=== PATIENT | female | born 1995 | race African-American/Black ===

== ENCOUNTER 2019-11-24 20:14 | Emergency (ER) | payer MEDICAID, OTHER ==
[~2019-11-24] VITALS: Ht 175.3 cm; Wt 71.3 kg
[2019-11-24] MEDS ORDERED: PLEASE ENTER ALLERGIES MC SCH (21:00)
[2019-11-24] MEDS ORDERED: ONDANSETRON 2MG/ML, 2ML IVPush ONE (21:00)
[2019-11-24 21:04] LABS: PH, VENOUS 7.443 pH (7.320-7.420)
[2019-11-24 21:05] LABS: BASOPHILS # (AUTO) 0.01 x10^3/uL (0-0.1); BASOPHILS % (AUTO) 0 % (0-1); EOSINOPHILS % (AUTO) 0 % (1-7); LYMPHOCYTES # (AUTO) 0.98 x10^3/uL (1-3.4); LYMPHOCYTES % (AUTO) 7 % (22-44); MD NO; MEAN CORPUSCULAR HGB CONC 33.3 g/dL (32.4-35.8); MEAN CORPUSCULAR VOLUME 90.1 fL (80-100); MEAN PLATELET VOLUME 8.7 fL (7.4-10.4); MONOCYTES # (AUTO) 0.11 x10^3/uL (0.2-0.8); MONOCYTES % (AUTO) 1 % (2-9); NEUTROPHILS # (AUTO) 13.51 x10^3/uL (1.8-6.8); NEUTROPHILS % (AUTO) 93 % (42-75); PLATELET COUNT 302 x10^3/uL (130-400); RED BLOOD COUNT 4.93 x10^6/uL (3.82-5.3); RED CELL DISTRIBUTION WIDTH 13.3 % (9.6-15.2)
[2019-11-24 21:18] LABS: ALANINE AMINOTRANSFERASE 29 U/L (12-78); ALBUMIN 4.1 g/dL (3.4-5.0); ANION GAP 13 mmol/L (5-15); CALCIUM 9.7 mg/dL (8.5-10.1); CHLORIDE 105 mmol/L (98-107); CREATININE 0.81 mg/dL (0.55-1.02)
[2019-11-24 21:22] LABS: ALKALINE PHOSPHATASE 105 U/L (45-117); BILIRUBIN,TOTAL 0.6 mg/dL (0.2-1.0); TOTAL PROTEIN 8.2 g/dL (6.4-8.2)
[2019-11-24] MEDS ORDERED: SODIUM CHLORIDE 0.9% 1,000ML IVBOLUS ONE (22:30)
[2019-11-24] MEDS ORDERED: INSULIN REGULAR 100 UNITS/ML, 3ML VIAL IVPush ONE (22:30)
[2019-11-24] MEDS ORDERED: INSULIN SINGLE DOSE, ER ONE (22:33)
[2019-11-24] MEDS ORDERED: ONDANSETRON 2MG/ML, 2ML ONE (22:33)
[2019-11-24 23:01] LABS: ACETONE, SERUM Small (20mg/dL) mg/dL (Negative)
[2019-11-25] VITALS: BP 140/80
[2019-11-25 00:02] LABS: MICROSCOPIC NOT IND
[2019-11-25 00:07] LABS: CULTURE INDICATED? NO
[2019-11-26] MEDS ORDERED: INSU100V11 SC (11:13)
== END 2019-11-25 00:37 | disposition home or self-care (01) ==
LOC: ED 11-25 00:33
DX: R11.2 Nausea with vomiting, unspecified (principal); R10.13 Epigastric pain; E11.65 Type 2 diabetes mellitus with hyperglycemia
CPT/HCPCS: 36415; 80053; 81003; 82010; 82803; 82962; 83690; 84703; 85025; 93005; 96361; 96374; 96375; 99284; J1815; J2405; J7030

== ENCOUNTER 2019-11-25 11:50 | Emergency (ER) | payer MEDICAID ==
[~2019-11-25] VITALS: Ht 175.3 cm; Wt 73.0 kg
--- NOTE | 2019-11-25 12:16 | NUR ---
FIRST CONTACT WITH PT. HX DIABETIC PT REPORTS DKA WITH N/V AND ABD PAIN. PT HERE LAST NOC SAME. BG 267 AT THIS TIME. BP/SPO2 MONITORS IN PLACE. CALL LIGHT WITHIN REACH. PT'S BF AT BEDSIDE AT THIS TIME.
[2019-11-25 12:47] LABS: O2 FLOW ROOM AIR L/min
--- NOTE | 2019-11-25 12:49 | NUR ---
NS INFUSING AT THIS TIME. PT TOLERATED WELL.
--- NOTE | 2019-11-25 12:49 | NUR ---
PT IS NOT ABLE TO PROVIDE URINE SAMPLE AT THIS TIME. PT AWARES OF UA.
[2019-11-25] MEDS ORDERED: ONDANSETRON 2MG/ML, 2ML ONE (12:55)
[2019-11-25 12:57] LABS: ANION GAP 11 mmol/L (5-15); CHLORIDE 101 mmol/L (98-107); CREATININE 0.62 mg/dL (0.55-1.02)
--- NOTE | 2019-11-25 12:57 | NUR ---
pt medicated per emar. pt tolerated well.
[2019-11-25] MEDS ORDERED: SODIUM CHLORIDE 0.9% 1,000ML IVBOLUS ONE ×2 (13:00→14:00)
[2019-11-25] MEDS ORDERED: ONDANSETRON 2MG/ML, 2ML IVPush ONE (13:00)
[2019-11-25 13:44] LABS: ACETONE, SERUM Small (20mg/dL) mg/dL (Negative)
--- NOTE | 2019-11-25 14:07 | NUR ---
pt amb to br with boyfriend for ua.
--- NOTE | 2019-11-25 14:12 | NUR ---
pt provided urine sample at this time. ua sent.
--- NOTE | 2019-11-25 14:12 | NUR ---
2nd ns infusing at this time. pt tolerated well.
[2019-11-25 14:42] LABS: MICROSCOPIC AUTO
[2019-11-25 14:42] LABS: HEMOGRAM NOTE RECHECKED; MD YES; MEAN CORPUSCULAR HEMOGLOBIN 29.6 pg (27.0-34.8); MEAN PLATELET VOLUME 9.2 fL (7.4-10.4); PLATELET COUNT 311 x10^3/uL (130-400); RED BLOOD COUNT 4.53 x10^6/uL (3.82-5.3); RED CELL DISTRIBUTION WIDTH 13.5 % (9.6-15.2)
[2019-11-25 14:43] LABS: CULTURE INDICATED? NO
[2019-11-25 14:44] LABS: <PLATELET ESTIMATE> ADEQUATE; <PLT MORPHOLOGY> NORMAL PLT MORPH; <RBC MORPHOLOGY> NORMAL; BAND#(MANUAL) 0.43 x10^3/uL; BANDS%(MANUAL) 3 % (0-7); LYMPH#(MANUAL) 0.43 x10^3/uL (1-3.4); LYMPHS% (MANUAL) 3 % (22-44); MONOS#(MANUAL) 0.29 x10^3/uL (0.3-2.7); MONOS% (MANUAL) 2 % (2-9); SEG#(MANUAL) 13.16 x10^3/uL (1.8-6.8); SEGS% (MANUAL) 92 % (42-75)
--- NOTE | 2019-11-25 14:51 | NUR ---
PT'S BOYFRIEND BRENDA [phone]
[2019-11-25 15:55] VITALS: BP 156/81
--- NOTE | 2019-11-25 16:06 | NUR ---
PT SLEEPING IN [facility]. RESPS EVEN AND UNLABORED. BP/SPO2 MONITORS IN PLACE. CALL LIGHT WITHIN REACH.
--- NOTE | 2019-11-25 16:18 | NUR ---
BG 200 AT THIS TIME.
--- NOTE | 2019-11-25 16:19 | NUR ---
PT AMB TO BR WITH STEADY GAIT.
--- NOTE | 2019-11-25 16:24 | NUR ---
PT BACK TO ROOM WITH STEADY GAIT.
--- NOTE | 2019-11-25 16:38 | NUR ---
SNACKS GIVEN AT THIS TIME.
--- NOTE | 2019-11-25 16:47 | NUR ---
Patient given discharge instructions and they have confirmed that they understand the instructions. Patient ambulatory with steady gait.
[2019-11-26] MEDS ORDERED: INSU100V11 SC (11:13)
== END 2019-11-25 16:48 | disposition home or self-care (01) ==
LOC: ED 12:15
DX: K52.9 Noninfective gastroenteritis and colitis, unspecified (principal); E86.0 Dehydration; E10.65 Type 1 diabetes mellitus with hyperglycemia
CPT/HCPCS: 36600; 80048; 81001; 82010; 82803; 82962; 85025; 96361; 96374; 99283; J2405; J7030; 99284

== ENCOUNTER 2019-11-26 11:02 | Inpatient (IN) | payer MEDICAID ==
[~2019-11-26] VITALS: Ht 175.3 cm; Wt 73.2 kg
[2019-11-26] MEDS ORDERED: INSU100V11 SC (11:13)
--- NOTE | 2019-11-26 11:13 | NUR ---
antoniaa from home for n/v and high fsbg. pt was seen here for same yesterday and was told to drink lots of water but is unable to keep food or fluids down. pt states fsbg was 329 at home, 380 for jenna fire and was 340 per ems. piv established en route and 250mL NS, 4mg zofran and 50 fentanyl was administered. pt connected to all monitors. vss. awaiting edmd assessment.
[2019-11-26] MEDS ORDERED: METOCLOPRAMIDE 5 MG/ML, 2ML ONE (11:27)
[2019-11-26] MEDS ORDERED: METOCLOPRAMIDE 5 MG/ML, 2ML IVPush ONE (11:30)
[2019-11-26] MEDS ORDERED: SODIUM CHLORIDE 0.9% 1,000ML IVBOLUS ONE ×2 (11:30→13:30)
[2019-11-26] MEDS ORDERED: SODIUM CHLORIDE FLUSH 10ML SYR IVF ONE (11:30)
--- NOTE | 2019-11-26 11:33 | NUR ---
pt resting in room. vss. photo lab technician to bs for draw. pt medicated per mar. pt aware of need for ua sample but states that she just went and cannot go again at this time. awaiting resutls.
[2019-11-26 11:50] LABS: BASOPHILS % (AUTO) 0 % (0-1); EOSINOPHILS % (AUTO) 0 % (1-7); LYMPHOCYTES # (AUTO) 1.79 x10^3/uL (1-3.4); LYMPHOCYTES % (AUTO) 12 % (22-44); MD NO; MEAN CORPUSCULAR HEMOGLOBIN 29.7 pg (27.0-34.8); MEAN CORPUSCULAR HGB CONC 33.8 g/dL (32.4-35.8); MEAN CORPUSCULAR VOLUME 87.8 fL (80-100); MEAN PLATELET VOLUME 8.9 fL (7.4-10.4); MONOCYTES % (AUTO) 4 % (2-9); NEUTROPHILS # (AUTO) 12.38 x10^3/uL (1.8-6.8); NEUTROPHILS % (AUTO) 84 % (42-75); PLATELET COUNT 321 x10^3/uL (130-400); RED BLOOD COUNT 4.58 x10^6/uL (3.82-5.3); RED CELL DISTRIBUTION WIDTH 13.4 % (9.6-15.2)
[2019-11-26 11:55] LABS: ALANINE AMINOTRANSFERASE 22 U/L (12-78); ALBUMIN 3.6 g/dL (3.4-5.0); ANION GAP 14 mmol/L (5-15); CALCIUM 8.6 mg/dL (8.5-10.1); CHLORIDE 102 mmol/L (98-107); CREATININE 0.76 mg/dL (0.55-1.02)
[2019-11-26 11:58] LABS: ALKALINE PHOSPHATASE 92 U/L (45-117); BILIRUBIN,TOTAL 0.7 mg/dL (0.2-1.0); TOTAL PROTEIN 7.2 g/dL (6.4-8.2)
--- NOTE | 2019-11-26 12:05 | NUR ---
pt up self to rr wtih steady gait to provide ua sample.
--- NOTE | 2019-11-26 12:13 | NUR ---
pt back form rr and reconnected to monitors. vss. no needs expressed. ua collected and sent. awaiting results.
[2019-11-26 12:36] LABS: ACETONE, SERUM Large (80mg/dL) mg/dL (Negative)
[2019-11-26 12:40] LABS: MICROSCOPIC AUTO
[2019-11-26 12:47] LABS: CULTURE INDICATED? NO
[2019-11-26] MEDS ORDERED: INSULIN SINGLE DOSE, ER ONE (13:25)
[2019-11-26] MEDS ORDERED: ONDANSETRON ODT 4 MG PO PRN (13:30)
[2019-11-26] MEDS ORDERED: ACETAMINOPHEN 325 MG TABLET PO PRN (13:30)
[2019-11-26] MEDS ORDERED: ONDANSETRON 2MG/ML, 2ML IVPush PRN (13:30)
[2019-11-26] MEDS ORDERED: DEXTROSE 50%, 50ML SYRINGE IVPush PRN (13:30)
[2019-11-26] MEDS ORDERED: hydrALAzine 20 MG/ML, 1ML IVPush PRN (13:30)
[2019-11-26] MEDS ORDERED: MORPHINE SULFATE 4 MG/ML, 1ML IVPush PRN (13:30)
[2019-11-26] MEDS ORDERED: GLUCAGON 1 MG IM PRN (13:30)
[2019-11-26] MEDS ORDERED: DEXTROSE 4 GM TAB.CHEW PO PRN (13:30)
[2019-11-26] MEDS ORDERED: SODIUM CHLORIDE 0.9% 1,000 ML IV ONE (13:30)
[2019-11-26] MEDS ORDERED: BACLOFEN 10 MG TABLET PO PRN (13:30)
[2019-11-26] MEDS ORDERED: GABAPENTIN 300 MG CAPSULE PO PRN (13:30)
[2019-11-26] MEDS ORDERED: INSULIN REGULAR 100 UNITS/ML, 3ML VIAL IVPush ONE (13:30)
--- NOTE | 2019-11-26 14:33 | NUR ---
REPORT TO AROLDO GUTIERREZ. PT READY FRO TRANSPORT.
[2019-11-26] MEDS: INSULIN GLARGINE 100 UNITS/ML, PEN SQ-INSULIN SCH (15:53)
[2019-11-26] MEDS: NS + 20MEQ KCL 1,000 ML IV SCH (16:07)
[2019-11-26 16:09] VITALS: BP 118/74
[2019-11-26 17:01] LABS: ANION GAP 8 mmol/L (5-15); CALCIUM 7.8 mg/dL (8.5-10.1); CHLORIDE 107 mmol/L (98-107); CREATININE 0.64 mg/dL (0.55-1.02)
[2019-11-26] MEDS: INSULIN LISPRO 100 UNITS/ML, PEN SQ-INSULIN SCH ×2 (18:41→21:20)
[2019-11-26 19:19] VITALS: BP 146/90
[2019-11-26] MEDS: PROMETHAZINE 25 MG/ML, 1ML IM PRN (20:19)
[2019-11-26 20:58] LABS: HCG UR SG 1.017 (1.003-1.030)
[2019-11-26] MEDS: SODIUM CHLORIDE FLUSH 10ML SYR IVF SCH (21:19)
[2019-11-27] MEDS: PROMETHAZINE 25 MG/ML, 1ML IM PRN ×3 (00:13→21:42)
[2019-11-27 00:35] VITALS: BP 148/93
[2019-11-27] MEDS: NS + 20MEQ KCL 1,000 ML IV SCH ×3 (02:28→20:27)
[2019-11-27 06:40] LABS: BASOPHILS # (AUTO) 0.02 x10^3/uL (0-0.1); BASOPHILS % (AUTO) 0 % (0-1); EOSINOPHILS % (AUTO) 0 % (1-7); LYMPHOCYTES # (AUTO) 2.32 x10^3/uL (1-3.4); LYMPHOCYTES % (AUTO) 20 % (22-44); MD NO; MEAN CORPUSCULAR HEMOGLOBIN 29.8 pg (27.0-34.8); MEAN CORPUSCULAR HGB CONC 34.3 g/dL (32.4-35.8); MEAN CORPUSCULAR VOLUME 86.8 fL (80-100); MEAN PLATELET VOLUME 8.8 fL (7.4-10.4); MONOCYTES % (AUTO) 6 % (2-9); NEUTROPHILS # (AUTO) 8.45 x10^3/uL (1.8-6.8); NEUTROPHILS % (AUTO) 74 % (42-75); PLATELET COUNT 289 x10^3/uL (130-400); RED BLOOD COUNT 4.18 x10^6/uL (3.82-5.3); RED CELL DISTRIBUTION WIDTH 13.1 % (9.6-15.2)
[2019-11-27 06:45] VITALS: BP 127/76
[2019-11-27 06:53] LABS: ANION GAP 11 mmol/L (5-15); CALCIUM 7.9 mg/dL (8.5-10.1); CHLORIDE 106 mmol/L (98-107); CREATININE 0.55 mg/dL (0.55-1.02)
[2019-11-27 06:54] LABS: ALANINE AMINOTRANSFERASE 20 U/L (12-78)
[2019-11-27 06:56] LABS: ALKALINE PHOSPHATASE 77 U/L (45-117); BILIRUBIN,TOTAL 0.6 mg/dL (0.2-1.0)
[2019-11-27] MEDS: INSULIN LISPRO 100 UNITS/ML, PEN SQ-INSULIN SCH ×4 (08:23→20:26)
[2019-11-27] MEDS: INSULIN GLARGINE 100 UNITS/ML, PEN SQ-INSULIN SCH (08:23)
[2019-11-27] MEDS: SODIUM CHLORIDE FLUSH 10ML SYR IVF SCH ×2 (08:27→20:27)
[2019-11-27 12:03] VITALS: BP 136/84
[2019-11-27 19:57] LABS: ANION GAP 6 mmol/L (5-15); CALCIUM 8.5 mg/dL (8.5-10.1); CHLORIDE 105 mmol/L (98-107)
[2019-11-27 20:01] VITALS: BP 135/82
[2019-11-27 21:30] LABS: AMPHETAMINE SCREEN, URINE Negative (Negative); BARBITURATE SCREEN, URINE Negative (Negative); BENZODIAZEPINE SCREEN, URINE Negative (Negative); CANNABINOID SCREEN, URINE Negative (Negative); COCAINE SCREEN, URINE Negative (Negative); METHADONE SCREEN, URINE Negative (Negative); OPIATE SCREEN, URINE Negative (Negative)
[2019-11-28 01:27] VITALS: BP 120/72
[2019-11-28] MEDS: NS + 20MEQ KCL 1,000 ML IV SCH (04:01)
[2019-11-28 05:30] LABS: BASOPHILS # (AUTO) 0.03 x10^3/uL (0-0.1); BASOPHILS % (AUTO) 0 % (0-1); EOSINOPHILS # (AUTO) 0.01 x10^3/uL (0-0.4); EOSINOPHILS % (AUTO) 0 % (1-7); LYMPHOCYTES # (AUTO) 2.05 x10^3/uL (1-3.4); LYMPHOCYTES % (AUTO) 22 % (22-44); MD NO; MEAN CORPUSCULAR HEMOGLOBIN 29.4 pg (27.0-34.8); MEAN CORPUSCULAR HGB CONC 33.6 g/dL (32.4-35.8); MEAN CORPUSCULAR VOLUME 87.5 fL (80-100); MEAN PLATELET VOLUME 8.3 fL (7.4-10.4); MONOCYTES # (AUTO) 0.69 x10^3/uL (0.2-0.8); MONOCYTES % (AUTO) 7 % (2-9); NEUTROPHILS # (AUTO) 6.54 x10^3/uL (1.8-6.8); NEUTROPHILS % (AUTO) 70 % (42-75); PLATELET COUNT 328 x10^3/uL (130-400); RED BLOOD COUNT 4.65 x10^6/uL (3.82-5.3); RED CELL DISTRIBUTION WIDTH 13.4 % (9.6-15.2)
[2019-11-28 05:46] LABS: ALBUMIN 3.3 g/dL (3.4-5.0); ANION GAP 9 mmol/L (5-15); CALCIUM 8.4 mg/dL (8.5-10.1); CHLORIDE 103 mmol/L (98-107)
[2019-11-28 05:50] LABS: ALANINE AMINOTRANSFERASE 21 U/L (12-78); ALKALINE PHOSPHATASE 85 U/L (45-117); BILIRUBIN,TOTAL 0.8 mg/dL (0.2-1.0); CREATININE 0.62 mg/dL (0.55-1.02); TOTAL PROTEIN 6.8 g/dL (6.4-8.2)
[2019-11-28 08:37] VITALS: BP 109/56
[2019-11-28] MEDS: INSULIN GLARGINE 100 UNITS/ML, PEN SQ-INSULIN SCH (08:39)
[2019-11-28] MEDS: SODIUM CHLORIDE FLUSH 10ML SYR IVF SCH (08:39)
[2019-11-28] MEDS: INSULIN LISPRO 100 UNITS/ML, PEN SQ-INSULIN SCH ×2 (08:40→11:09)
[2019-11-28] MEDS ORDERED: INSU100I11 SQ-INSULIN (10:01)
[2019-11-28] MEDS ORDERED: INSU100I13 SQ-INSULIN (10:01)
[2019-11-28 13:00] VITALS: BP 130/65
== END 2019-11-28 14:02 | disposition home or self-care (01) | DRG 639 ==
LOC: ED 13:28 → EDIP 13:29 → ED 13:42 → 3N 14:46 → DCLOUNGE 11-28 13:52
PROVIDERS: ADMIT Hospitalist; ATTEND Hospitalist
DX: E10.10 Type 1 diabetes mellitus with ketoacidosis without coma (principal); D72.829 Elevated white blood cell count, unspecified; Z91.19 Patient's noncompliance with other medical treatment and regimen; Z79.4 Long term (current) use of insulin; E86.0 Dehydration
CPT/HCPCS: 36415; 76705; 80048; 80053; 80307; 81001; 81025; 82010; 82962; 83036; 83605; 83690; 83735; 84100; 85025; 96361; 96374; 96375; G0378; J2405; J2550; J3480; J1815; J2765; J7030